=== PATIENT | female | born 1955 | race Caucasian/White ===

== ENCOUNTER 2021-03-25 14:38 | Emergency (ER) | payer BC ==
[~2021-03-25] VITALS: Ht 157.5 cm; Wt 63.0 kg
[2021-03-25] MEDS ORDERED: ATORVASTATIN CA10 MG PO (15:20)
[2021-03-25] MEDS ORDERED: NIX59 M1 TOP (16:50)
== END 2021-03-25 16:57 | disposition home or self-care (01) ==
LOC: ER 14:38
DX: B86 Scabies (principal)